=== PATIENT | female | born 1935 | race Caucasian/White ===

== ENCOUNTER → 2017-06-23 | Outpatient (CLI) | payer MEDICARE | LOC: MAMO 06-21 13:00 | DX: Z12.31 Encounter for screening mammogram for malignant neoplasm of breast (principal) | CPT/HCPCS: G0202 ==

== ENCOUNTER → 2020-12-19 | Outpatient (CLI) | payer MEDICARE ==
[~2020-12-19] MED LIST: LIDOCAINE PAIN1 EACH TP; NORCO 5-325 TA1 EACH PO
== END ==
LOC: MAMO 09-22 08:30
DX: Z12.31 Encounter for screening mammogram for malignant neoplasm of breast (principal)
CPT/HCPCS: 77063; 77067

== ENCOUNTER → 2022-02-25 | Outpatient (CLI) | payer MEDICARE | LOC: MAMO 02-24 15:00 | DX: Z12.31 Encounter for screening mammogram for malignant neoplasm of breast (principal) | CPT/HCPCS: 77063; 77067 ==